=== PATIENT | female | born 1985 | race Caucasian/White ===

== ENCOUNTER 2017-08-13 09:08 | Emergency (ER) | payer OTHER ==
[2017-08-13 10:55] VITALS: BP 129/65
--- NOTE | 2017-08-13 11:01 | UC ---
Throat Pain/Nasal Tee HPI - HPI Summary HPI Summary: 32 y/o female presents to the urgent care c/o sinus pain and pressure w/ green nasal discharge and RANGEL for the past week. Pt reports her left nostril is mildly swollen w/ some blisters that are painful. Pain is 4/10. She has taken Vicks, used the humidifier but nothing is working. Pt denies fever, SOB, chest pain, dizziness, abdominal pain, N/V/D. - History of Current Complaint Chief Complaint: UCSkin Stated Complaint: SINUS/LEFT SIDE OF NOSE SWOLLEN Time Seen by Provider: 08/13/17 10:59 Hx Obtained From: Patient Hx Last Menstrual Period: 07/18/2017 Onset/Duration: Gradual Onset, Lasting Weeks - 1 week, Worse Since - yesterday Severity: Moderate Pain Intensity: 4 Pain Scale Used: 0-10 Numeric Cough: None Associated Signs & Symptoms: Positive: Sinus Discomfort, Nasal Discharge, Rash - on left nostril. Negative: Fever Related History: Seasonal Allergies - Epiglottits Risk Factors Epiglottis Risk Factors: Negative - Allergies/Home Medications Allergies/Adverse Reactions: Allergies Allergy/AdvReac Type Severity Reaction Status Date / Time levofloxacin [From Levaquin] Allergy Vomiting Verified 08/13/17 10:46 seasonal Allergy Congestion Uncoded 08/13/17 10:46 PMH/Surg Hx/FS Hx/Imm Hx Previously Healthy: Yes - Pt denies PMHX Other Respiratory History: seasonal allergies - Surgical History Surgical History: Yes Surgery Procedure, Year, and Place: C-Sections, 2005 2008 2009, [facility] [place] [facility] - Family History Known Family History: Positive: Cardiac Disease, Diabetes - Social History Occupation: Employed Full-time Lives: With Family Alcohol Use: None Substance Use Type: None Smoking Status (MU): Light Every Day Tobacco Smoker Type: Cigarettes, eCigarettes Amount Used/How Often: 1/2 PPD Length of Time of Smoking/Using Tobacco: 12 Years Have You Smoked in the Last Year: Yes Household Exposure Type: Cigarettes - Immunization History Most Recent Influenza Vaccination: Not the 2013/2014 season Review of Systems Constitutional: Negative Skin: Rash - at the left nostril w/ some painful blisters Eyes: Negative ENT: Ear Ache - B/L ear pressure, Nasal Discharge, Sinus Congestion, Sinus Pain/ Tenderness Respiratory: Negative Cardiovascular: Negative Gastrointestinal: Negative Genitourinary: Negative Motor: Negative Neurovascular: Negative Musculoskeletal: Negative Neurological: Headache Psychological: Negative Is Patient Immunocompromised?: No All Other Systems Reviewed And Are Negative: Yes Physical Exam - Summary Physical Exam Summary: Vitals: reviewed General: Well developed, well-nourished female patient with NAD. Head and face: Normocephalic and atraumatic, Positive tenderness over the frontal and maxillary sinuses.. Eyes: PERRLA, EOMI x 2. Normal conjunctiva. No eye discharge. ENT: Ears and TM with normal limits. Nose: with yellowish discharge and erythematous mucosa. Mild erythematous eruption w/ some tender blisters at the medial base of left nostril. Pharynx with no erythema, no exudate. Neck: Supple, no JVD, no carotid bruits. Positive B/L anterior cervical lymphadenopathy. Lungs: clear, no rales, no rhonchi, no wheezes. CVS: RRR, S1 and S2 present no murmurs or gallops appreciated. Abdomen: soft nontender with positive bowel sounds. Extremities: no edema noted. Neuro: WNL. Skin: warm and dry Triage Information Reviewed: Yes Vital Signs: Initial Vital Signs Temp 99.7 F 08/13/17 10:47 Pulse 96 08/13/17 10:47 Resp 18 08/13/17 10:47 BP 129/65 08/13/17 10:47 Pulse Ox 97 08/13/17 10:47 Throat Pain/Nasal Course/Dx - Course Course Of Treatment: 32 y/o female presents to the urgent care c/o sinus pain and pressure w/ green nasal discharge and RANGEL for the past week. Pt reports her left nostril is mildly swollen w/ some blisters that are painful. Pain is 4/10. She has taken Vicks, used the humidifier but nothing is working. Pt denies fever , SOB, chest pain, dizziness, abdominal pain, N/V/D.Hx obtained. Pt w/ acute bacterial sinusitis and herpes simplex on examination. Pt with 1 weeks of symptoms getting worse and HX of recurrent sinusitis. Pt Rx Augmentin PO and flonase nasal spray, Valtrex for herpes simplex. Discharge instructions explained to Pt. Advised to Return to the clinic or PCP if symptoms do not improve.Pt understood and agreed with plan of care. - Differential Dx/Diagnosis Differential Diagnosis/HQI/PQRI: Influenza, Otitis Media, Pharyngitis, Sinusitis , URI, Other - herpes labialis Provider Diagnoses: 1- Acute bacterial sinusitis. 2-Herpes simplex virus around nose Discharge - Discharge Plan Condition: Stable Disposition: HOME Prescriptions: Amoxicillin/Clavulanate TAB* [Augmentin TAB 875*] 875 mg PO BID #20 tab Fluticasone NASAL SPRAY 50MCG* [Flonase NASAL SPRAY 50MCG*] 2 spray BOTH NARES DAILY #1 btl ValACYclovir (*) [Valtrex 1 GM(*)] 2 gm PO BID #4 tab Patient Education Materials: Sinusitis (ED), Oral Herpes Simplex Virus Infections (ED) Referrals: STEPHON Levi [Primary Care Provider] - 3 Days Additional Instructions: 1- Please increase fluid intake and rest. take full course of antibiotic to avoid resistance 2-Use Flonase as directed to help drain fluid. Also buy saline drops to clear sinuses 3-Take Valtrex as directed to alleviate symptoms 4-Return to the clinic or PCP in 3 days if symptoms do not improve for further management and treatment
== END 2017-08-13 11:19 | disposition home or self-care (01) ==
LOC: UCCORT 09:08
DX: J01.90 Acute sinusitis, unspecified (principal); B96.89 Other specified bacterial agents as the cause of diseases classified elsewhere; B00.9 Herpesviral infection, unspecified; Z88.1 Allergy status to other antibiotic agents; F17.210 Nicotine dependence, cigarettes, uncomplicated
CPT/HCPCS: 99212; G0463

== ENCOUNTER 2018-03-08 10:51 | Emergency (ER) | payer OTHER ==
[2018-03-08 11:50] VITALS: BP 129/81
--- NOTE | 2018-03-08 11:59 | UC ---
Respiratory Complaint HPI - HPI Summary HPI Summary: Pt c/o cough, nasal congestion, fever, chills and generalized malaise. Pt had URI symptoms 3 weeks ago that improved an dnow have returned and have worsened over last 5 days. - History of Current Complaint Chief Complaint: UCRespiratory Stated Complaint: COUGH,CONGESTION Time Seen by Provider: 03/08/18 11:48 Hx Obtained From: Patient Hx Last Menstrual Period: 03/03/18 ?: No Onset/Duration: Sudden Onset, Lasting Days, Still Present Timing: Constant Severity Initially: Mild Severity Currently: Moderate Pain Intensity: 2 Character: Cough: Nonproductive Aggravating Factors: Exertion, Deep Breaths, Recumbent Position Alleviating Factors: Nothing Associated Signs And Symptoms: Positive: Fever - subjective, Chills, URI, Nasal Congestion - Risk Factors Pulmonary Embolism Risk Factors: Smoking Cardiac Risk Factors: Smoking Pseudomonas Risk Factors: Negative Tuberculosis Risk Factors: Smoking - Allergies/Home Medications Allergies/Adverse Reactions: Allergies Allergy/AdvReac Type Severity Reaction Status Date / Time levofloxacin [From Levaquin] Allergy Vomiting Verified 03/08/18 11:38 seasonal Allergy Congestion Uncoded 03/08/18 11:38 Home Medications: Home Medications Acetaminophen TAB* [Tylenol TAB*] 650 mg PO Q4H PRN 03/08/18 [History Confirmed 03/08/18] PMH/Surg Hx/FS Hx/Imm Hx Previously Healthy: Yes - Surgical History Surgical History: Yes Surgery Procedure, Year, and Place: C-Sections, 2004 2008 2009, [facility] [place] and [facility] - Family History Known Family History: Positive: Cardiac Disease, Diabetes - Social History Occupation: Employed Full-time Lives: With Family Alcohol Use: None Substance Use Type: None Smoking Status (MU): Light Every Day Tobacco Smoker Type: Cigarettes, eCigarettes Amount Used/How Often: 1/2 PPD Length of Time of Smoking/Using Tobacco: 12 Years Have You Smoked in the Last Year: Yes Household Exposure Type: Cigarettes - Immunization History Most Recent Influenza Vaccination: Not the season Vaccination Up to Date: No Review of Systems Constitutional: Fever, Chills, Fatigue Skin: Negative Eyes: Negative ENT: Sinus Congestion Respiratory: Cough Cardiovascular: Negative Gastrointestinal: Negative Genitourinary: Negative Motor: Negative Neurovascular: Negative Musculoskeletal: Myalgia Neurological: Negative Psychological: Negative Is Patient Immunocompromised?: No All Other Systems Reviewed And Are Negative: Yes Physical Exam Triage Information Reviewed: Yes Appearance: Ill-Appearing Vital Signs: Initial Vital Signs Temp 97.9 F 03/08/18 11:42 Pulse 82 03/08/18 11:42 Resp 18 03/08/18 11:42 BP 129/81 03/08/18 11:42 Pulse Ox 99 03/08/18 11:42 Vital Signs Reviewed: Yes Eye Exam: Normal ENT: Positive: Nasal congestion, TM bulging Dental Exam: Normal Neck exam: Normal Respiratory: Positive: Wheezing Cardiovascular Exam: Normal Musculoskeletal Exam: Normal Neurological Exam: Normal Psychological Exam: Normal Skin Exam: Normal Diagnostic Evaluation - Laboratory O2 Sat by Pulse Oximetry: 99 Respiratory Course/Dx - Differential Dx/Diagnosis Differential Diagnosis/HQI/PQRI: Bronchitis, Influenza Provider Diagnoses: Bronchitis Discharge - Sign-Out/Discharge Documenting (check all that apply): Patient Departure All imaging exams completed and their final reports reviewed: No Studies - Discharge Plan Condition: Stable Disposition: HOME Prescriptions: Azithromycin TAB* [Zithromax TAB (Z-EDMAR) 250 mg #6 tabs] 2 tab PO .TODAY, THEN 1 DAILY #1 edmar Levalbuterol HFA INHALER* [Xopenex Hfa Inhaler*] 2 puff INH Q6H PRN #1 mdi PRN Reason: Shortness Of Breath predniSONE TAB* [Deltasone 10 MG TAB*] 30 mg PO DAILY #12 tab Patient Education Materials: Acute Bronchitis (ED) Referrals: Chris Mejía MD [Primary Care Provider] - If Needed - Billing Disposition and Condition Condition: STABLE Disposition: Home - Attestation Statements Provider Attestation: I was available for consult. This patient was seen by the RUFINO. The patient was not presented to, seen by, or examined by me. -Wilmer
== END 2018-03-08 12:05 | disposition home or self-care (01) ==
LOC: UCCORT 10:51
DX: J40 Bronchitis, not specified as acute or chronic (principal); Z88.1 Allergy status to other antibiotic agents; F17.210 Nicotine dependence, cigarettes, uncomplicated
CPT/HCPCS: 99212; G0463